=== PATIENT | female | born 1945 | race Two or more races ===

== ENCOUNTER 2017-06-19 03:27 | Emergency (ER) | payer OTHER ==
[2017-06-19 03:40] VITALS: BP 139/67; PULSE 62; TEMP 97.6; BMI 23.6
--- NOTE | 2017-06-19 04:31 | PDOC ---
History of Present Illness - General Chief Complaint: Trach Tube Replacement Stated Complaint: TRACH PROBLEM Time Seen by Provider: 06/19/17 04:18 - History of Present Illness Initial Comments: 06/19/17 04:35 Patient is a 72-year-old female with past medical history of tongue neck and facial cancer who presents to the emergency department today stating that she had some bleeding from her stoma site. Patient had surgery to remove her facial cancer on 06/03/17. She had a tracheostomy for the procedure. Upon discharge on she had her trach removed. Patient reports that she coughed earlier in the evening and then noticed blood from her stoma site. She states that there was blood on the bed sheets and she had to change her dressing. Currently bleeding has appeared to stop. Denies dizziness, lightheadedness, chest pain, shortness of breath, nausea, vomiting, tasting blood in the back of her throat. Patient takes aspirin but no NOAC's or warfarin. Past History - Past Medical History Allergies/Adverse Reactions: Allergies Allergy/AdvReac Type Severity Reaction Status Date / Time Penicillins Allergy Intermediate Hives Verified 06/19/17 03:38 ceftriaxone Allergy Verified 06/19/17 03:38 pineapples Allergy Intermediate Hives Uncoded 06/19/17 03:38 Home Medications: Ambulatory Orders Albuterol 0.083% Nebulizer Sirena [Ventolin 0.083% Nebulizer Soln -] 1.25 mg NEB PRN 06/19/17 Amiodarone HCl 200 mg PO DAILY 06/19/17 Aspirin [Aspirin EC] 81 mg PO AM 06/19/17 Chlorhexidine Gluconate [Peridex -] 15 ml MM BIDAC 06/19/17 Dextromethorphan Polistirex [Delsym] 30 mg PO TID #110 ml 06/19/17 Docusate Sodium 100 mg PO BID 06/19/17 Eszopiclone [Lunesta -] 3 mg PO HS 06/19/17 Losartan/Hydrochlorothiazide [Losartan-Hctz 100-25 mg Tab] 1 each PO AM Melatonin 5 mg PO HS 06/19/17 Metoprolol Succinate [Toprol Xl -] 25 mg PO AM 06/19/17 Asthma: Yes Cancer: Yes (THROAT) Cardiac Disorders: Yes (ANEURSYM) CVA: No Dementia: No Diabetes: No GI Disorders: Yes (REFLUX) Disorders: Yes (BIOPSY FOR "DROPPED UTERUS" POSS MASS ALSO NOTED) HTN: Yes Hypercholesterolemia: Yes Liver Disease: No Suicide Attempt (Hx): No Seizures: No Thyroid Disease: No - Surgical History Abdominal Surgery: No Appendectomy: No Cardiac Surgery: Yes (STENT; COIL RT SIDE) Cholecystectomy: No Lung Surgery: No Neurologic Surgery: No Orthopedic Surgery: No - Immunization History Td Vaccination: Yes Immunization Up to Date: Yes - Psycho/Social/Smoking Cessation Hx Anxiety: No Suicidal Ideation: No Smoking Status: No Smoking History: Former smoker Years of Tobacco Use: 0 Have you smoked in the past 12 months: No Number of Cigarettes Smoked Daily: 20 Cigars Per Day: 0 Information on smoking cessation initiated: No Hx Alcohol Use: No Drug/Substance Use Hx: No Substance Use Type: None Hx Substance Use Treatment: No Review of Systems - Review of Systems Able to Perform ROS?: Yes Comments:: 06/19/17 04:35 CONSTITUTIONAL: Absent: fever, chills, diaphoresis, generalized weakness, malaise, loss of appetite HEENT: Absent: rhinorrhea, nasal congestion, throat pain, throat swelling, difficulty swallowing, mouth swelling, ear pain, eye pain, visual Changes CARDIOVASCULAR: Absent: chest pain, loss of consciousness, palpitations, irregular heart rate, peripheral edema RESPIRATORY: Present: bleeding from stoma. Cough Absent: shortness of breath, dyspnea with exertion, orthopnea, wheezing, stridor, hemoptysis GASTROINTESTINAL: Absent: abdominal pain, abdominal distension, nausea, vomiting, diarrhea, constipation, melena, hematochezia GENITOURINARY: Absent: dysuria, frequency, urgency, hesitancy, hematuria, flank pain, genital pain MUSCULOSKELETAL: Absent: myalgia, arthralgia, joint swelling SKIN: Absent: rash, itching, pallor HEMATOLOGIC/IMMUNOLOGIC: Absent: easy bleeding, easy bruising, lymphadenopathy, frequent infections ENDOCRINE: Absent: unexplained weight gain, unexplained weight loss, heat intolerance, cold intolerance NEUROLOGIC: Absent: headache, focal weakness or paresthesias, dizziness, unsteady gait, seizure, mental status changes, bladder or bowel incontinence PSYCHIATRIC: Absent: anxiety, depression, suicidal or homicidal ideation, hallucinations. Is the patient limited [place] proficient: No *Physical Exam - Vital Signs Last Vital Signs Temp Pulse Resp BP Pulse Ox 97.6 F 62 22 139/67 98 06/19/17 03:38 06/19/17 03:38 06/19/17 03:38 06/19/17 03:38 06/19/17 03:38 - Physical Exam Comments: 06/19/17 06:37 GENERAL: Well developed, well nourished. Awake and alert. No acute distress, breathing easily. HEENT: Normocephalic, atraumatic. PERRLA, EOMI. No conjunctival pallor. Sclera are non- icteric. Moist mucous membranes. Oropharynx is clear. NECK: Partially open stoma, No current bleeding from the stoma site. Surgical site with small area of dehiscence under the chin. Supple. Full ROM. No JVD. Carotid pulses 2+ and symmetric, without bruits. No thyromegaly. No lymphadenopathy. CARDIOVASCULAR: Regular rate and rhythm. No murmurs, rubs, or gallops. Distal pulses are 2+ and symmetric. PULMONARY: No evidence of respiratory distress. Lungs clear to auscultation bilaterally. No wheezing, rales or rhonchi. SKIN: Warm and dry. Normal capillary refill. No rashes. No jaundice. NEUROLOGICAL: Alert, awake, appropriate. Cranial nerves 2-12 intact. No deficits to light touch and temperature in face, upper extremities and lower extremities. No motor deficits in the in face, upper extremities and lower extremities. Normoreflexic in the upper and lower extremities. Normal speech. Toes are down- going bilaterally. Gait is normal without ataxia. ED Treatment Course - LABORATORY CBC & Chemistry Diagram: 06/19/17 04:50 06/19/17 04:50 - RADIOLOGY Radiology Studies Ordered: Category Date Time Status CHEST PA & LAT [RAD] Stat Radiology 06/19/17 04:30 Ordered Medical Decision Making - Medical Decision Making 06/19/17 04:45 Patient is a 72-year-old female with past medical history of tongue neck and facial cancer who presents to the emergency department today stating that she had some bleeding from her stoma site. We will draw basic labs and order a chest x-ray at this time to rule out anemia and aspiration pneumonia. Reevaluate for a elevated BUN and creatinine most likely due to dehydration secondary to poor intake post surgery. Patient and are aware of her dehydration from her previous visit with her surgeon a couple days ago. Refusing IV fluids as patient is a difficult IV stick. Chest x-ray shows enlarged heart with ICD in place. No evidence of aspiration pneumonia. 06/19/17 05:36 Bleeding has stopped and there has been no bleeding since the patient entered the emergency department H&H are stable. We will discharge home at this time. Patient states that she has follow-up with her surgeon today. Patient understands all discharge instructions and all questions were answered at this time. *DC/Admit/Observation/Transfer Diagnosis at time of Disposition: Stoma bleed, Dehydration - Discharge Dispostion Admit: No - Prescriptions Prescriptions: Dextromethorphan Polistirex [Delsym] 30 mg PO TID #110 ml - Referrals Referrals: Tereza Arnold MD [Primary Care Provider] - - Patient Instructions Additional Instructions: Your stoma bled today, probably due to coughing. The bleeding stopped on its own. You were prescribed a cough medication. Take it as prescribed until you see your surgeon. Follow up with your surgeon as soon as possible. You are also dehydrated. Increase your fluid intake. Return to the ED if you have more bleeding from the stoma, difficulty breathing or any changes in your symptoms.
[2017-06-19 05:05] LABS: BASOPHIL 0.7 % (0-2.0); EOSINOPHIL 2.4 % (0-4.5); MCH 29.7 pg (25.7-33.7); MCHC 32.4 g/dl (32.0-36.0); MEAN CELL VOLUME 91.8 fl (80-96); MEAN PLT VOLUME 7.7 fl (7.5-11.1); NEUTROPHILS 73.7 % (42.8-82.8); PLATELET COUNT 369 K/MM3 (134-434); RDW 17.2 % (11.6-15.6); WHITE BLOOD COUNT 6.5 K/mm3 (4.0-10.0)
[2017-06-19 05:29] LABS: INR 1.12 (0.82-1.09); PROTHROMBIN TIME (PATIENT) 12.3 SEC (9.98-11.88)
[2017-06-19 05:38] LABS: ALBUMIN 3.7 g/dl (3.4-5.0); ANION GAP 11 (8-16); BILIRUBIN,TOTAL 0.8 mg/dL (0.2-1.0); CALCIUM 10.1 mg/dL (8.5-10.1); CO2 27 mmol/L (21-32); CREATININE 2.2 mg/dL (0.55-1.02); GLUCOSE,RANDOM 93 mg/dL (74-106); SGOT/AST 21 U/L (15-37); SGPT/ALT 22 U/L (12-78); TOT PROT 7.8 g/dl (6.4-8.2)
[2017-06-19 05:39] LABS: ALK PHOS 85 U/L (45-117)
[2017-06-19] MEDS ORDERED: SODIUM CHLORIDE 500 ML IV STA (05:49)
--- NOTE | 2017-06-19 06:16 | PDOC ---
*Physical Exam - Vital Signs Last Vital Signs Temp Pulse Resp BP Pulse Ox 97.6 F 62 22 139/67 98 06/19/17 03:38 06/19/17 03:38 06/19/17 03:38 06/19/17 03:38 06/19/17 04:05 ED Treatment Course - LABORATORY CBC & Chemistry Diagram: 06/19/17 04:50 06/19/17 04:50 - ADDITIONAL ORDERS Additional order review: Laboratory Results 06/19/17 06/19/17 04:50 04:50 INR 1.12 Sodium 139 Potassium 4.2 Chloride 101 Carbon Dioxide 27 Anion Gap 11 BUN 50 H D Creatinine 2.2 H D Creat Clearance w eGFR 22.00 Random Glucose 93 Calcium 10.1 Total Bilirubin 0.8 AST 21 D ALT 22 D Alkaline Phosphatase 85 D Total Protein 7.8 Albumin 3.7 06/19/17 04:50 RBC 3.72 MCV 91.8 MCHC 32.4 RDW 17.2 H D MPV 7.7 D Neutrophils % 73.7 Lymphocytes % 16.1 Monocytes % 7.1 Eosinophils % 2.4 D Basophils % 0.7 Medical Decision Making - Medical Decision Making 06/19/17 06:15 agree with care from JAY Hanson
== END 2017-06-19 06:40 | disposition home or self-care (01) ==
LOC: JER 03:27
PROC: 3E0337Z Introduction of Electrolytic and Water Balance Substance into Peripheral Vein, Percutaneous Approach (ICD-10-PCS; principal; 2017-06-19)
DX: J95.01 Hemorrhage from tracheostomy stoma (principal); E87.6 Hypokalemia; Z85.810 Personal history of malignant neoplasm of tongue; Z85.818 Personal history of malignant neoplasm of other sites of lip, oral cavity, and pharynx; Z85.828 Personal history of other malignant neoplasm of skin; I10 Essential (primary) hypertension; J45.909 Unspecified asthma, uncomplicated; K21.9 Gastro-esophageal reflux disease without esophagitis; Z87.891 Personal history of nicotine dependence
CPT/HCPCS: 36415; 71020-TC; 80053; 85025; 85610; 96360; 99282-25

== ENCOUNTER 2020-07-11 04:48 | Day surgery (SDC) | payer OTHER ==
[2020-07-10 16:36] VITALS: BMI 24.7
[~2020-07-11 04:48] MED LIST: ACETAMINOPHEN 325 MG TABLET (FP) PO PRN; BSS (NA/CA/MG/K) BALANCED SALT SOLUTION OPHTH SOLN 15 ML BOTTLE OD ONE; CHONDROITIN SU A/HYALUR SOD 1 KIT IO ONE; CYCLOPENTOLATE HCL 1% OPHTH SOLN 2 ML BOTTLE OP SCH; EPINEPHrine 1:1,000 1 MG/1 ML - 30ML VIAL (INJECTION) SQ ONE; KETOROLAC TROMETHAMINE 0.5% EYE DROP 1 DROP DROPS OP SCH; LIDOCAINE HCL 1% PRESERVATIVE FREE - 30ML VIAL IO ONE; OFLOXACIN 0.3% OPHTHALMIC SOLUTION 5 ML BOTTLE OP SCH; PHENYLEPHRINE 2.5% OPHTH SOLN 15 ML BOTTLE OP SCH; POVIDONE-IODINE 5% OPHTHALMIC PREP 30 ML SOLUTION OD ONE; TETRACAINE 0.5% OPHTH SOLN 2 ML BOTTLE OD ONE; TROPICAMIDE 1% OPHTH SOLN 15 ML BOTTLE OP SCH
[2020-07-11] MEDS ORDERED: OFLOXACIN 0.3% OPHTHALMIC SOLUTION 5 ML BOTTLE ONE (06:44)
[2020-07-11] MEDS ORDERED: KETOROLAC TROMETHAMINE 0.5% EYE DROP 1 DROP DROPS ONE (06:44)
[2020-07-11] MEDS ORDERED: CYCLOPENTOLATE HCL 1% OPHTH SOLN 2 ML BOTTLE ONE (06:44)
[2020-07-11] MEDS ORDERED: TROPICAMIDE 1% OPHTH SOLN 15 ML BOTTLE ONE (06:44)
[2020-07-11] MEDS ORDERED: CHONDROITIN SU A/HYALUR SOD 1 KIT ONE (07:08)
[2020-07-11] MEDS ORDERED: EPINEPHrine/PF 1 MG/1 ML (1:1,000) AMPULE ONE (07:27)
[2020-07-11] MEDS ORDERED: LIDOCAINE HCL/PF 1% SDV 5ML VIAL ONE (07:27)
[2020-07-11] MEDS ORDERED: BSS (NA/CA/MG/K) BALANCED SALT SOLUTION OPHTH SOLN 15 ML BOTTLE ONE (07:27)
[2020-07-11] MEDS ORDERED: POVIDONE-IODINE 5% OPHTHALMIC PREP 30 ML SOLUTION ONE (07:27)
[2020-07-11] MEDS ORDERED: TETRACAINE 0.5% OPHTH SOLN 2 ML BOTTLE ONE (07:27)
[2020-07-11] MEDS ORDERED: OFLOXACIN 0.3% OPHTHALMIC SOLUTION 5 ML BOTTLE OD ONE ×3 (07:30→07:55)
[2020-07-11] MEDS ORDERED: TROPICAMIDE 1% OPHTH SOLN 15 ML BOTTLE OD ONE ×3 (07:30→07:55)
[2020-07-11] MEDS ORDERED: PHENYLEPHRINE 2.5% OPHTH SOLN 15 ML BOTTLE OD ONE ×3 (07:30→07:55)
[2020-07-11] MEDS ORDERED: KETOROLAC TROMETHAMINE 0.5% EYE DROP 1 DROP DROPS OD ONE ×3 (07:30→07:55)
[2020-07-11] MEDS ORDERED: CYCLOPENTOLATE HCL 1% OPHTH SOLN 2 ML BOTTLE OD ONE ×3 (07:30→07:55)
[2020-07-11 07:36] VITALS: BP 148/63; PULSE 80; TEMP 97.5
[2020-07-11] MEDS ORDERED: MANNITOL 25% 12.5 GM/50 ML VIAL IVPB ONE (08:53)
== END 2020-07-11 10:20 | disposition home or self-care (01) ==
LOC: JASU-SURG 04:48
PROVIDERS: ATTEND Ophthalmology
DX: Z53.8 Procedure and treatment not carried out for other reasons (principal)

== ENCOUNTER 2020-11-07 04:39 | Day surgery (SDC) | payer OTHER ==
[2020-11-06 17:04] VITALS: BMI 19.6
[~2020-11-07 04:39] MED LIST changes: -ACETAMINOPHEN 325 MG TABLET (FP) PO PRN; -CYCLOPENTOLATE HCL 1% OPHTH SOLN 2 ML BOTTLE OP SCH; -EPINEPHrine 1:1,000 1 MG/1 ML - 30ML VIAL (INJECTION) SQ ONE; +EPINEPHrine/PF 1 MG/1 ML (1:1,000) AMPULE SQ ONE; -KETOROLAC TROMETHAMINE 0.5% EYE DROP 1 DROP DROPS OP SCH; -OFLOXACIN 0.3% OPHTHALMIC SOLUTION 5 ML BOTTLE OP SCH; -PHENYLEPHRINE 2.5% OPHTH SOLN 15 ML BOTTLE OP SCH; -TROPICAMIDE 1% OPHTH SOLN 15 ML BOTTLE OP SCH
[2020-11-07] MEDS ORDERED: TROPICAMIDE 1% OPHTH SOLN 15 ML BOTTLE ONE (06:24)
[2020-11-07] MEDS ORDERED: KETOROLAC TROMETHAMINE 0.5% EYE DROP 1 DROP DROPS ONE (06:24)
[2020-11-07] MEDS ORDERED: OFLOXACIN 0.3% OPHTHALMIC SOLUTION 5 ML BOTTLE ONE (06:25)
[2020-11-07] MEDS ORDERED: CYCLOPENTOLATE HCL 1% OPHTH SOLN 2 ML BOTTLE ONE (06:25)
[2020-11-07] MEDS: PHENYLEPHRINE 2.5% OPHTH SOLN 15 ML BOTTLE OP SCH ×3 (07:00→07:10)
[2020-11-07] MEDS: TROPICAMIDE 1% OPHTH SOLN 15 ML BOTTLE OP SCH ×3 (07:00→07:10)
[2020-11-07] MEDS: CYCLOPENTOLATE HCL 1% OPHTH SOLN 2 ML BOTTLE OP SCH ×3 (07:00→07:10)
[2020-11-07] MEDS: KETOROLAC TROMETHAMINE 0.5% EYE DROP 1 DROP DROPS OP SCH ×3 (07:00→07:10)
[2020-11-07] MEDS: OFLOXACIN 0.3% OPHTHALMIC SOLUTION 5 ML BOTTLE OP SCH ×3 (07:00→07:10)
[2020-11-07] MEDS ORDERED: EPINEPHrine/PF 1 MG/1 ML (1:1,000) AMPULE ONE (07:14)
[2020-11-07] MEDS ORDERED: VANCOMYCIN 500 MG VIAL (RESTRICTED TO ID ONLY) ONE (07:14)
[2020-11-07] MEDS ORDERED: TETRACAINE 0.5% OPHTH SOLN 2 ML BOTTLE ONE (07:15)
[2020-11-07] MEDS ORDERED: LIDOCAINE HCL/PF 1% SDV 5ML VIAL ONE (07:15)
[2020-11-07] MEDS ORDERED: WATER FOR INJ,STERILE 10 ML ONE (07:15)
[2020-11-07] MEDS ORDERED: POVIDONE-IODINE 5% OPHTHALMIC PREP 30 ML SOLUTION ONE (07:15)
[2020-11-07] MEDS ORDERED: TRYPAN BLUE 0.5 ML DISP.SYRIN ONE (07:16)
[2020-11-07] MEDS ORDERED: CHONDROITIN SU A/HYALUR SOD 1 KIT ONE (07:20)
[2020-11-07] MEDS ORDERED: MIDAZOLAM HCL 2 MG/2 ML SINGLE DOSE VIAL ONE (08:26)
[2020-11-07] MEDS ORDERED: PROPOFOL 20 ML ONE (08:37)
[2020-11-07] MEDS ORDERED: BUPIVACAINE HCL/PF 0.75% 10 ML VIAL RB ONE (08:41)
[2020-11-07] MEDS ORDERED: LIDOCAINE HCL/PF 2% SDV 5ML VIAL PNB ONE (08:41)
[2020-11-07] MEDS ORDERED: POVIDONE-IODINE 5% OPHTHALMIC PREP 30 ML SOLUTION OD ONE (08:42)
[2020-11-07] MEDS ORDERED: HYALURONATE SODIUM 14 MG/ML DISP.SYRIN IO ONE (08:49)
[2020-11-07] MEDS ORDERED: BSS (NA/CA/MG/K) BALANCED SALT SOLUTION OPHTH SOLN 15 ML BOTTLE OD ONE (08:49)
[2020-11-07] MEDS ORDERED: TRYPAN BLUE 0.5 ML DISP.SYRIN IO ONE (08:49)
[2020-11-07] MEDS ORDERED: CHONDROITIN SU A/HYALUR SOD 1 KIT IO ONE (08:49)
[2020-11-07] MEDS ORDERED: LIDOCAINE HCL 1% PRESERVATIVE FREE - 30ML VIAL IO ONE (08:49)
[2020-11-07] MEDS ORDERED: EPINEPHrine/PF 1 MG/1 ML (1:1,000) AMPULE SQ ONE (08:58)
[2020-11-07 09:29] VITALS: TEMP 97.7
[2020-11-07 10:29] VITALS: BP 129/81; PULSE 68
[2020-11-07] MEDS ORDERED: ACETAMINOPHEN 325 MG TABLET (FP) PO PRN (11:49)
== END 2020-11-07 10:05 | disposition home or self-care (01) ==
LOC: JASU-SURG 04:39
PROVIDERS: ATTEND Ophthalmology
PROC: 08RJ3JZ Replacement of Right Lens with Synthetic Substitute, Percutaneous Approach (ICD-10-PCS; principal; 2020-11-07 08:00)
DX: H26.9 Unspecified cataract (principal)

== ENCOUNTER 2020-11-25 11:15 | Inpatient (IN) | payer OTHER ==
[2020-11-25 13:21] LABS: BASO % 0.7 % (0-2.0); EOS % 0.8 % (0-4.5); HEMATOCRIT 29.5 % (32.4-45.2); HEMOGLOBIN 9.2 GM/dL (10.7-15.3); LYMPH % 11.3 % (8-40); MCH 23.6 pg (25.7-33.7); MCHC 31.2 g/dl (32.0-36.0); MEAN CELL VOLUME 75.7 fl (80-96); MEAN PLT VOLUME 7.9 fl (7.5-11.1); MONO % 2.7 % (3.8-10.2); NEUT % 84.5 % (42.8-82.8); PLATELET COUNT 404 K/MM3 (134-434); RDW 18.7 % (11.6-15.6)
[2020-11-25 13:34] LABS: CHLORIDE 103 mmol/L (98-107); SODIUM 137 mmol/L (136-145)
[2020-11-25 13:36] LABS: ALBUMIN 3.6 g/dl (3.4-5.0); ANION GAP 6 MMOL/L (8-16); BLOOD UREA NITROGEN 32.3 mg/dL (7-18); CALCIUM 10.3 mg/dL (8.5-10.1); CO2 27 mmol/L (21-32); GLUCOSE,RANDOM 109 mg/dL (74-106); MAGNESIUM 2.2 mg/dL (1.8-2.4)
[2020-11-25 13:39] LABS: CREATININE 1.7 mg/dL (0.55-1.3); SGOT/AST 21 U/L (15-37); SGPT/ALT 19 U/L (13-61)
[2020-11-25 13:41] LABS: BILIRUBIN,TOTAL 1.2 mg/dL (0.2-1); TOT PROT 7.8 g/dl (6.4-8.2)
[2020-11-25 13:42] LABS: ALK PHOS 79 U/L (45-117)
[2020-11-25] MEDS ORDERED: ACETAMINOPHEN 500 MG TABLET (FP) PO ONE (13:53)
[2020-11-25 13:55] LABS: N-TERMINAL BNP > 35000.0 pg/ml (5-125)
[2020-11-25] MEDS ORDERED: ASPIRIN 325 MG TABLET PO ONE (14:05)
[2020-11-25] MEDS ORDERED: FUROSEMIDE 40 MG/4 ML INJECTABLE VIAL IVPUSH ONE (14:05)
[2020-11-25] MEDS ORDERED: ACETAMINOPHEN 325 MG TABLET (FP) ONE (14:06)
[2020-11-25] MEDS ORDERED: FUROSEMIDE 40 MG/4 ML INJECTABLE VIAL ONE (14:06)
[2020-11-25] MEDS ORDERED: ASPIRIN 81 MG CHEWABLE TABLETS ONE (14:20)
[2020-11-25] MEDS ORDERED: ALBUTEROL SO4 HFA INHALER IH PRN (15:59)
[2020-11-25] MEDS ORDERED: ZOLPIDEM TARTRATE 5 MG TABLET PO PRN (22:00)
[2020-11-25] MEDS ORDERED: ZOLPIDEM TARTRATE 5 MG TABLET ONE (22:25)
[2020-11-26] MEDS ORDERED: LEVOTHYROXINE NA 25 MCG TABLET (FP) ONE (07:27)
[2020-11-26] MEDS: LEVOTHYROXINE NA 50 MCG TABLET (FP) PO SCH (07:41)
[2020-11-26] MEDS ORDERED: ENALAPRIL MALEATE 5 MG TABLET ONE (08:15)
[2020-11-26] MEDS ORDERED: FUROSEMIDE 40 MG/4 ML INJECTABLE VIAL ONE ×2 (08:15→11:20)
[2020-11-26] MEDS ORDERED: CARVEDILOL 12.5 MG TABLET (FP) ONE ×2 (08:15→22:19)
[2020-11-26] MEDS: ASPIRIN 81 MG CHEWABLE TABLETS PO SCH (09:03)
[2020-11-26] MEDS ORDERED: FUROSEMIDE 40 MG/4 ML INJECTABLE VIAL IVPUSH ONE (09:04)
[2020-11-26] MEDS ORDERED: ENALAPRIL MALEATE 5 MG TABLET PO SCH (10:00)
[2020-11-26] MEDS ORDERED: CARVEDILOL 12.5 MG TABLET (FP) PO SCH (10:00)
[2020-11-26] MEDS ORDERED: CHLORTHALIDONE 25 MG TABLET PO SCH (10:00)
[2020-11-26] MEDS ORDERED: FUROSEMIDE 40 MG/4 ML INJECTABLE VIAL IVPUSH SCH ×3 (10:00→14:00)
[2020-11-26] MEDS ORDERED: HEPARIN NA (PORCINE) 5,000 UNITS/ML 1ML VIAL ONE ×2 (11:20→22:19)
[2020-11-26] MEDS ORDERED: ASPIRIN 81 MG CHEWABLE TABLETS ONE (11:33)
[2020-11-26] MEDS: HEPARIN NA (PORCINE) 5,000 UNITS/ML 1ML VIAL SQ SCH ×2 (13:02→22:24)
[2020-11-26] MEDS: CARVEDILOL 12.5 MG TABLET (FP) PO SCH (22:24)
[2020-11-27] MEDS ORDERED: MELATONIN 5 MG TABLETS PO ONE ×2 (00:23→21:42)
[2020-11-27] MEDS ORDERED: ALBUTEROL SO4 2.5/IPRATROPIUM 0.5 INH SOL 3 ML VIAL.NEB. NEB PRN (00:31)
[2020-11-27] MEDS ORDERED: ZOLPIDEM TARTRATE 5 MG TABLET PO ONE (02:07)
[2020-11-27 03:41] VITALS: BMI 17.8
[2020-11-27] MEDS: FUROSEMIDE 40 MG/4 ML INJECTABLE VIAL IVPUSH SCH ×2 (06:26→13:53)
[2020-11-27] MEDS: LEVOTHYROXINE NA 50 MCG TABLET (FP) PO SCH (06:27)
[2020-11-27] MEDS: HEPARIN NA (PORCINE) 5,000 UNITS/ML 1ML VIAL SQ SCH ×3 (06:27→22:05)
[2020-11-27 06:37] LABS: HEMOGLOBIN 8.5 GM/dL (10.7-15.3); MCHC 32.6 g/dl (32.0-36.0); MEAN CELL VOLUME 73.8 fl (80-96); PLATELET COUNT 383 K/MM3 (134-434); RBC 3.53 M/mm3 (3.60-5.2); RDW 19.2 % (11.6-15.6); WHITE BLOOD COUNT 9.9 K/mm3 (4.0-10.0)
[2020-11-27 07:07] LABS: CALCIUM 9.7 mg/dL (8.5-10.1); MAGNESIUM 1.9 mg/dL (1.8-2.4)
[2020-11-27] MEDS ORDERED: POTASSIUM CHLORIDE TABS 20 MEQ TABLET.ER (FP) PO ONE ×2 (07:07→10:21)
[2020-11-27 07:10] LABS: CREATININE 1.7 mg/dL (0.55-1.3); PHOSPHOROUS 3.5 mg/dL (2.5-4.9)
[2020-11-27] MEDS: KCL 10 MEQ IVPB 10 MEQ/100 ML INFUS.BAG IVPB SCH ×4 (08:43→16:17)
[2020-11-27] MEDS: ASPIRIN 81 MG CHEWABLE TABLETS PO SCH (09:39)
[2020-11-27] MEDS: CARVEDILOL 12.5 MG TABLET (FP) PO SCH ×2 (09:47→22:05)
[2020-11-27] MEDS ORDERED: VALSARTAN 80 MG TABLET PO SCH (10:00)
[2020-11-27 18:09] LABS: EPI CELLS 2 /uL (0-25.1); HYALINE CASTS 0 /uL (0-3.1); URINE APPEARANCE CLEAR; URINE BACTERIA 543 /uL (0-1359); URINE BILIRUBIN NEGATIVE (NEGATIVE); URINE COLOR YELLOW; URINE GLUCOSE (UA) NEGATIVE (NEGATIVE); URINE KETONE NEGATIVE (NEGATIVE); URINE LEUK ESTERASE TRACE (NEGATIVE); URINE NITRITE NEGATIVE (NEGATIVE); URINE PROTEIN NEGATIVE (NEGATIVE); URINE RBC 1 /uL (0-23.9); URINE UROBILINOGEN 0.2 mg/dL (0.2-1.0); URINE WBC 5 /uL (0-25.8)
[2020-11-28] MEDS: LEVOTHYROXINE NA 50 MCG TABLET (FP) PO SCH (06:05)
[2020-11-28] MEDS: HEPARIN NA (PORCINE) 5,000 UNITS/ML 1ML VIAL SQ SCH ×3 (06:05→22:16)
[2020-11-28 07:32] LABS: CALCIUM 9.8 mg/dL (8.5-10.1)
[2020-11-28 07:33] LABS: ALBUMIN 3.1 g/dl (3.4-5.0); BLOOD UREA NITROGEN 46.9 mg/dL (7-18); MAGNESIUM 1.9 mg/dL (1.8-2.4)
[2020-11-28 07:36] LABS: CREATININE 1.7 mg/dL (0.55-1.3)
[2020-11-28 07:37] LABS: BILIRUBIN,TOTAL 1.1 mg/dL (0.2-1)
[2020-11-28 07:38] LABS: TOT PROT 6.5 g/dl (6.4-8.2)
[2020-11-28] MEDS: CARVEDILOL 12.5 MG TABLET (FP) PO SCH ×2 (09:14→22:16)
[2020-11-28] MEDS: ASPIRIN 81 MG CHEWABLE TABLETS PO SCH (09:14)
[2020-11-28] MEDS ORDERED: SACUBITRIL/VALSARTAN 24 MG-26 MG TABLET PO SCH ×3 (10:00→22:00)
[2020-11-28] MEDS ORDERED: FUROSEMIDE 40 MG/4 ML INJECTABLE VIAL IVPUSH SCH (10:00)
[2020-11-28 11:02] LABS: HEMATOCRIT 28.4 % (32.4-45.2); MCH 23.8 pg (25.7-33.7); MCHC 31.6 g/dl (32.0-36.0); MEAN CELL VOLUME 75.4 fl (80-96); MEAN PLT VOLUME 8.3 fl (7.5-11.1); PLATELET COUNT 422 K/MM3 (134-434); RBC 3.76 M/mm3 (3.60-5.2)
[2020-11-28] MEDS: SPIRONOLACTONE 25 MG TABLET PO SCH (14:39)
[2020-11-28] MEDS ORDERED: POTASSIUM CHLORIDE ORAL LIQUID 20 MEQ/15 ML PO ONE (16:39)
[2020-11-28] MEDS ORDERED: ZOLPIDEM TARTRATE 5 MG TABLET PO PRN (17:29)
[2020-11-28] MEDS ORDERED: TRIMETHOBENZAMIDE HCL 300 MG CAPSULE PO ONE (17:29)
[2020-11-28] MEDS ORDERED: PT OWN MED DRAWER 7, Y5N ONE (19:59)
[2020-11-29] MEDS: LEVOTHYROXINE NA 50 MCG TABLET (FP) PO SCH (06:17)
[2020-11-29] MEDS: HEPARIN NA (PORCINE) 5,000 UNITS/ML 1ML VIAL SQ SCH ×2 (06:17→14:52)
[2020-11-29 06:41] LABS: HEMATOCRIT 30.7 % (32.4-45.2); HEMOGLOBIN 9.6 GM/dL (10.7-15.3); MCH 23.5 pg (25.7-33.7); MCHC 31.3 g/dl (32.0-36.0); MEAN PLT VOLUME 8.2 fl (7.5-11.1); PLATELET COUNT 408 K/MM3 (134-434); RBC 4.09 M/mm3 (3.60-5.2); RDW 19.4 % (11.6-15.6); WHITE BLOOD COUNT 9.7 K/mm3 (4.0-10.0)
[2020-11-29 06:53] LABS: CALCIUM 9.7 mg/dL (8.5-10.1)
[2020-11-29 06:54] LABS: BLOOD UREA NITROGEN 42.1 mg/dL (7-18)
[2020-11-29 06:57] LABS: CREATININE 1.4 mg/dL (0.55-1.3)
[2020-11-29 09:17] VITALS: BP 137/60; PULSE 71; TEMP 98.1
[2020-11-29] MEDS: SPIRONOLACTONE 25 MG TABLET PO SCH (09:17)
[2020-11-29] MEDS: ASPIRIN 81 MG CHEWABLE TABLETS PO SCH (09:17)
[2020-11-29] MEDS: CARVEDILOL 12.5 MG TABLET (FP) PO SCH (09:17)
[2020-11-29] MEDS ORDERED: SACUBITRIL/VALSARTAN 24 MG-26 MG TABLET PO SCH (10:00)
[2020-11-29] MEDS ORDERED: FUROSEMIDE 40 MG TABLET (FP) PO SCH (10:00)
[2020-11-29] MEDS ORDERED: FUROSEMIDE 20 MG TABLET (FP) PO SCH (10:00)
== END 2020-11-29 18:24 | disposition home health service (06) | DRG 291 ==
LOC: SUPCPDRO 11:15 → JER 11:15 → JERBED 14:55 → J4S 11-26 23:52
PROVIDERS: ADMIT Internal Medicine; ATTEND Internal Medicine
DX: I13.0 Hypertensive heart and chronic kidney disease with heart failure and stage 1 through stage 4 chronic kidney disease, or unspecified chronic kidney disease (principal); I50.23 Acute on chronic systolic (congestive) heart failure; I24.8 Other forms of acute ischemic heart disease; N17.9 Acute kidney failure, unspecified; J44.1 Chronic obstructive pulmonary disease with (acute) exacerbation; N18.30 Chronic kidney disease, stage 3 unspecified; J45.909 Unspecified asthma, uncomplicated; I25.10 Atherosclerotic heart disease of native coronary artery without angina pectoris; I10 Essential (primary) hypertension; E03.9 Hypothyroidism, unspecified; K21.9 Gastro-esophageal reflux disease without esophagitis; I42.0 Dilated cardiomyopathy; I25.2 Old myocardial infarction; D64.9 Anemia, unspecified; E87.6 Hypokalemia; Z85.810 Personal history of malignant neoplasm of tongue; Z95.5 Presence of coronary angioplasty implant and graft; Z95.0 Presence of cardiac pacemaker; Z87.442 Personal history of urinary calculi
CPT/HCPCS: 36415; 71045-TC-FY; 80048; 80053; 80061; 81003; 83721; 83735; 83880; 84100; 84439; 84481; 84484; 85025; 85027; 93005; 93010; 93306-TC; 94761; 97116-GP; 97161-GP; 99285-25; C9803; J1644; U0003

== ENCOUNTER 2021-03-11 03:13 | Emergency (ER) | payer OTHER ==
[2021-03-11 03:36] VITALS: BP 142/76; PULSE 96; TEMP 98.1; BMI 29.9
[2021-03-11] MEDS ORDERED: diphenhydrAMINE HCL 25 MG CAPSULE (FP) PO ONE ×2 (03:38→03:45)
== END 2021-03-11 05:27 | disposition home or self-care (01) ==
LOC: JER 03:13
DX: S40.861A Insect bite (nonvenomous) of right upper arm, initial encounter (principal); S40.862A Insect bite (nonvenomous) of left upper arm, initial encounter
CPT/HCPCS: 99283-25

== ENCOUNTER 2021-03-18 10:32 | Inpatient (IN) | payer OTHER ==
[2021-03-18 13:07] LABS: BASO % 1.7 % (0-2.0); EOS % 1.9 % (0-4.5); HEMATOCRIT 27.6 % (32.4-45.2); HEMOGLOBIN 8.7 GM/dL (10.7-15.3); LYMPH % 20.3 % (8-40); MCH 25.7 pg (25.7-33.7); MCHC 31.5 g/dl (32.0-36.0); MEAN CELL VOLUME 81.7 fl (80-96); MEAN PLT VOLUME 9.1 fl (7.5-11.1); MONO % 12.7 % (3.8-10.2); NEUT % 63.4 % (42.8-82.8); PLATELET COUNT 255 K/MM3 (134-434); RBC 3.38 M/mm3 (3.60-5.2); RDW 19.8 % (11.6-15.6); WHITE BLOOD COUNT 6.4 K/mm3 (4.0-10.0)
[2021-03-18 13:13] LABS: INR 1.51 (0.83-1.09); PROTHROMBIN TIME (PATIENT) 18.4 SEC (9.7-13.0)
[2021-03-18 13:16] LABS: ACTIVATED PTT 28.7 SECONDS (25.2-36.5)
[2021-03-18 13:26] LABS: CHLORIDE 108 mmol/L (98-107); SODIUM 140 mmol/L (136-145)
[2021-03-18 13:28] LABS: CALCIUM 9.9 mg/dL (8.5-10.1)
[2021-03-18 13:29] LABS: ALBUMIN 3.4 g/dl (3.4-5.0); ANION GAP 6 MMOL/L (8-16); CO2 27 mmol/L (21-32); GLUCOSE,RANDOM 88 mg/dL (74-106); MAGNESIUM 2.3 mg/dL (1.8-2.4)
[2021-03-18 13:32] LABS: CHOLESTEROL 77 mg/dL (50-200); CREATININE 2.4 mg/dL (0.55-1.3); SGOT/AST 87 U/L (15-37); SGPT/ALT 95 U/L (13-61)
[2021-03-18 13:33] LABS: BILIRUBIN,TOTAL 1.4 mg/dL (0.2-1); LDL CHOLESTEROL (ONLY SJRH) 33 mg/dL (5-100); TOT PROT 6.7 g/dl (6.4-8.2); TRIGLYCERIDES 67 mg/dL (0-150)
[2021-03-18 13:34] LABS: ALK PHOS 231 U/L (45-117)
[2021-03-18 13:35] LABS: HDL CHOLESTEROL 37 mg/dL (40-60)
[2021-03-18] MEDS ORDERED: METOCLOPRAMIDE HCL INJECTION 10 MG/2 ML VIAL IVPUSH ONE (14:13)
[2021-03-18] MEDS ORDERED: METOCLOPRAMIDE HCL INJECTION 10 MG/2 ML VIAL ONE (14:23)
[2021-03-18] MEDS ORDERED: FUROSEMIDE 40 MG/4 ML INJECTABLE VIAL IVPUSH ONE (17:58)
[2021-03-18] MEDS ORDERED: FUROSEMIDE 40 MG/4 ML INJECTABLE VIAL ONE (18:22)
[2021-03-18 18:56] LABS: EPI CELLS 19 /uL (0-25.1); HYALINE CASTS 2 /uL (0-3.1); URINE APPEARANCE CLEAR; URINE BACTERIA 50 /uL (0-1359); URINE BILIRUBIN NEGATIVE (NEGATIVE); URINE COLOR YELLOW; URINE GLUCOSE (UA) NEGATIVE (NEGATIVE); URINE KETONE NEGATIVE (NEGATIVE); URINE LEUK ESTERASE 2+ (NEGATIVE); URINE NITRITE NEGATIVE (NEGATIVE); URINE PROTEIN TRACE (NEGATIVE); URINE WBC 111 /uL (0-25.8)
[2021-03-18] MEDS ORDERED: ZOLPIDEM TARTRATE 5 MG TABLET PO STA (23:29)
[2021-03-19] MEDS ORDERED: HEPARIN NA (PORCINE) 5,000 UNITS/ML 1ML VIAL ONE ×2 (00:17→12:29)
[2021-03-19] MEDS ORDERED: ZOLPIDEM TARTRATE 5 MG TABLET ONE (00:17)
[2021-03-19] MEDS: HEPARIN NA (PORCINE) 5,000 UNITS/ML 1ML VIAL SQ SCH ×4 (00:24→22:52)
[2021-03-19 07:17] LABS: BASO % 1.3 % (0-2.0); EOS % 5.1 % (0-4.5); HEMATOCRIT 25.1 % (32.4-45.2); HEMOGLOBIN 8.1 GM/dL (10.7-15.3); LYMPH % 18.9 % (8-40); MCH 26.3 pg (25.7-33.7); MCHC 32.5 g/dl (32.0-36.0); MEAN CELL VOLUME 80.9 fl (80-96); MEAN PLT VOLUME 9.1 fl (7.5-11.1); NEUT % 63.7 % (42.8-82.8); PLATELET COUNT 220 K/MM3 (134-434); WHITE BLOOD COUNT 7.4 K/mm3 (4.0-10.0)
[2021-03-19 07:43] LABS: ALBUMIN 3.2 g/dl (3.4-5.0); BLOOD UREA NITROGEN 47.4 mg/dL (7-18); CALCIUM 9.4 mg/dL (8.5-10.1)
[2021-03-19 07:46] LABS: BILIRUBIN,TOTAL 1.1 mg/dL (0.2-1); CREATININE 2.3 mg/dL (0.55-1.3); TOT PROT 6.3 g/dl (6.4-8.2)
[2021-03-19 07:47] LABS: PHOSPHOROUS 3.5 mg/dL (2.5-4.9)
[2021-03-19] MEDS: LEVOTHYROXINE NA 50 MCG TABLET (FP) PO SCH (08:00)
[2021-03-19] MEDS ORDERED: FUROSEMIDE 40 MG/4 ML INJECTABLE VIAL ONE (12:29)
[2021-03-19] MEDS ORDERED: CARVEDILOL 12.5 MG TABLET (FP) ONE (12:29)
[2021-03-19] MEDS: CARVEDILOL 12.5 MG TABLET (FP) PO SCH ×2 (14:58→22:52)
[2021-03-19] MEDS: NYSTATIN 500,000 UNITS/5 ML SUSPENSION PO SCH ×2 (14:59→18:00)
[2021-03-19] MEDS: FUROSEMIDE 40 MG/4 ML INJECTABLE VIAL IVPUSH SCH (14:59)
[2021-03-19] MEDS: MELATONIN 5 MG TABLETS PO PRN (22:52)
[2021-03-20] MEDS: NYSTATIN 500,000 UNITS/5 ML SUSPENSION PO SCH ×6 (00:49→23:35)
[2021-03-20] MEDS ORDERED: MELATONIN 5 MG TABLETS PO ONE ×2 (03:38→04:03)
[2021-03-20 03:40] VITALS: BMI 18.6
[2021-03-20] MEDS ORDERED: ZOLPIDEM TARTRATE 5 MG TABLET PO ONE (03:42)
[2021-03-20] MEDS: HEPARIN NA (PORCINE) 5,000 UNITS/ML 1ML VIAL SQ SCH ×4 (06:19→22:39)
[2021-03-20] MEDS: LEVOTHYROXINE NA 50 MCG TABLET (FP) PO SCH (06:19)
[2021-03-20] MEDS: CARVEDILOL 12.5 MG TABLET (FP) PO SCH ×2 (09:49→22:26)
[2021-03-20] MEDS: PANTOPRAZOLE 40 MG TABLET PO SCH (09:50)
[2021-03-20] MEDS: FUROSEMIDE 40 MG/4 ML INJECTABLE VIAL IVPUSH SCH (09:50)
[2021-03-20] MEDS ORDERED: ZOLPIDEM TARTRATE 5 MG TABLET PO PRN (15:09)
[2021-03-20] MEDS: MELATONIN 5 MG TABLETS PO PRN (22:26)
[2021-03-21] MEDS: NYSTATIN 500,000 UNITS/5 ML SUSPENSION PO SCH ×3 (06:31→17:50)
[2021-03-21] MEDS: LEVOTHYROXINE NA 50 MCG TABLET (FP) PO SCH (06:31)
[2021-03-21] MEDS: HEPARIN NA (PORCINE) 5,000 UNITS/ML 1ML VIAL SQ SCH ×2 (06:39→14:22)
[2021-03-21] MEDS ORDERED: FUROSEMIDE 40 MG TABLET (FP) PO SCH (10:00)
[2021-03-21] MEDS: CARVEDILOL 12.5 MG TABLET (FP) PO SCH (10:29)
[2021-03-21] MEDS: PANTOPRAZOLE 40 MG TABLET PO SCH (10:31)
[2021-03-21 15:25] VITALS: BP 109/51; PULSE 54; TEMP 98
== END 2021-03-21 17:45 | disposition home health service (06) | DRG 291 ==
LOC: JER 10:32 → JERBED 12:18 → J4W 03-19 21:35
PROVIDERS: ADMIT Internal Medicine; ATTEND Internal Medicine
DX: I13.0 Hypertensive heart and chronic kidney disease with heart failure and stage 1 through stage 4 chronic kidney disease, or unspecified chronic kidney disease (principal); I50.23 Acute on chronic systolic (congestive) heart failure; N17.9 Acute kidney failure, unspecified; I24.8 Other forms of acute ischemic heart disease; I25.10 Atherosclerotic heart disease of native coronary artery without angina pectoris; J45.909 Unspecified asthma, uncomplicated; J44.9 Chronic obstructive pulmonary disease, unspecified; I42.0 Dilated cardiomyopathy; N18.30 Chronic kidney disease, stage 3 unspecified; E03.9 Hypothyroidism, unspecified; R55 Syncope and collapse; R77.8 Other specified abnormalities of plasma proteins; B37.9 Candidiasis, unspecified; D64.9 Anemia, unspecified; I10 Essential (primary) hypertension; K21.9 Gastro-esophageal reflux disease without esophagitis; W18.39XA Other fall on same level, initial encounter; E78.5 Hyperlipidemia, unspecified; Z85.810 Personal history of malignant neoplasm of tongue; Z95.0 Presence of cardiac pacemaker; Z95.5 Presence of coronary angioplasty implant and graft; Z85.819 Personal history of malignant neoplasm of unspecified site of lip, oral cavity, and pharynx; Z99.81 Dependence on supplemental oxygen; Y92.89 Other specified places as the place of occurrence of the external cause; Y99.8 Other external cause status
CPT/HCPCS: 36415; 70450-TC; 70486-TC; 71045-TC-FY; 74230-TC-FY; 76700-TC; 80053; 80061; 81003; 82570; 82962; 83036; 83721; 83735; 83880; 84100; 84300; 84443; 84484; 85025; 85610; 85730; 86682; 87086; 87205; 92611-GN; 93005; 93010; 93306-TC; 93880-TC; 97116-GP; 97161-GP; 99285-25; C9803; J1644; U0003; U0005

== ENCOUNTER 2021-04-14 14:31 | Emergency (ER) | payer OTHER ==
[2021-04-14 15:53] LABS: EOS % 2.2 % (0-4.5); HEMATOCRIT 26.2 % (32.4-45.2); HEMOGLOBIN 8.1 GM/dL (10.7-15.3); LYMPH % 14.3 % (8-40); MCH 24.5 pg (25.7-33.7); MCHC 30.9 g/dl (32.0-36.0); MEAN CELL VOLUME 79.5 fl (80-96); MEAN PLT VOLUME 8.3 fl (7.5-11.1); MONO % 7.8 % (3.8-10.2); NEUT % 74.7 % (42.8-82.8); PLATELET COUNT 274 K/MM3 (134-434); RBC 3.29 M/mm3 (3.60-5.2); RDW 20.8 % (11.6-15.6); WHITE BLOOD COUNT 6.5 K/mm3 (4.0-10.0)
[2021-04-14 15:59] VITALS: BMI 22.8
[2021-04-14 16:11] LABS: CHLORIDE 101 mmol/L (98-107); SODIUM 137 mmol/L (136-145)
[2021-04-14 16:14] LABS: CALCIUM 8.8 mg/dL (8.5-10.1)
[2021-04-14 16:15] LABS: ANION GAP 6 MMOL/L (8-16); CHOLESTEROL 64 mg/dL (50-200); CO2 30 mmol/L (21-32); GLUCOSE,RANDOM 110 mg/dL (74-106); TRIGLYCERIDES 103 mg/dL (0-150)
[2021-04-14 16:16] LABS: LDL CHOLESTEROL (ONLY SJRH) 27 mg/dL (5-100)
[2021-04-14 16:18] LABS: CREATININE 1.8 mg/dL (0.55-1.3); HDL CHOLESTEROL 29 mg/dL (40-60); SGOT/AST 27 U/L (15-37); SGPT/ALT 40 U/L (13-61)
[2021-04-14 16:19] LABS: BILIRUBIN,TOTAL 0.7 mg/dL (0.2-1); INR 1.24 (0.83-1.09); PROTHROMBIN TIME (PATIENT) 14.9 SEC (9.7-13.0)
[2021-04-14 16:22] LABS: ACTIVATED PTT 26.5 SECONDS (25.2-36.5)
[2021-04-14 16:33] LABS: ALBUMIN 2.8 g/dl (3.4-5.0); ALK PHOS 184 U/L (45-117)
[2021-04-14 16:48] LABS: EPI CELLS 11 /uL (0-25.1); HYALINE CASTS 0 /uL (0-3.1); URINE APPEARANCE CLEAR; URINE BACTERIA >9,000 /uL (0-1359); URINE BILIRUBIN NEGATIVE (NEGATIVE); URINE COLOR YELLOW; URINE GLUCOSE (UA) NEGATIVE (NEGATIVE); URINE KETONE NEGATIVE (NEGATIVE); URINE LEUK ESTERASE 1+ (NEGATIVE); URINE NITRITE POSITIVE (NEGATIVE); URINE PROTEIN NEGATIVE (NEGATIVE); URINE RBC 3 /uL (0-23.9); URINE WBC 52 /uL (0-25.8)
[2021-04-14 17:33] LABS: ANISOCYTOSIS 1+; MACROCYTOSIS 1+; OVALOCYTE 1+; PLATELET ESTIMATE NORMAL
[2021-04-14 18:19] VITALS: PULSE 64
[2021-04-14] MEDS ORDERED: ASPIRIN 81 MG CHEWABLE TABLETS ONE (19:27)
[2021-04-14 20:12] VITALS: BP 114/92; TEMP 98.1
[2021-04-14] MEDS ORDERED: ASPIRIN 81 MG CHEWABLE TABLETS PO ONE (21:06)
[2021-04-15] MEDS ORDERED: ASPIRIN 81 MG CHEWABLE TABLETS PO SCH (10:00)
[2021-04-15] MEDS ORDERED: ASPIRIN 81 MG CHEWABLE TABLETS PO ONE (19:26)
== END 2021-04-14 21:25 | disposition short-term general hospital (02) ==
LOC: JER 14:31
DX: I67.1 Cerebral aneurysm, nonruptured (principal); R53.1 Weakness
CPT/HCPCS: 36415; 70450-TC; 70496-TC; 70498-TC; 71045-TC-FY; 80053; 80061; 81003; 82550; 83721; 84484; 85025; 85610; 85730; 86850; 86900; 86901; 93005; 93010; 99285-25; C9803; Q9967; U0003; U0005